=== PATIENT | male | born 1940 | race African-American/Black ===

== ENCOUNTER 2019-06-20 16:11 | Inpatient (IN) | payer OTHER ==
--- NOTE | 2019-06-20 16:22 | PDOC ---
Rapid Medical Evaluation Time Seen by Provider: 06/20/19 16:18 Medical Evaluation: Allergies Allergy/AdvReac Type Severity Reaction Status Date / Time No Known Allergies Allergy Verified 06/20/19 16:18 06/20/19 16:19 I have performed a brief in-person evaluation of this patient. The patient presents with a chief complaint of:L hip pain s/p trip and fall today. Unable to bear weight since fall. Did not hit head injury, LOC, MILLER, dizziness. No CP or dizziness prior to fall. On coumadin for DVT, HTN Pertinent physical exam findings:stable I have ordered the following:XR The patient will proceed to the ED for further evaluation. Discharge Disposition - Diagnosis Hip pain Qualifiers: Laterality: left Qualified Code(s): M25.552 - Pain in left hip - Referrals - Patient Instructions - Post Discharge Activity
--- NOTE | 2019-06-20 17:23 | PDOC ---
History of Present Illness <Laura Banks - Last Filed: 06/20/19 21:45> - General History Source: Patient Exam Limitations: No Limitations - History of Present Illness Initial Comments: 06/20/19 17:18 HISTORY OF PRESENT ILLNESS: This a 79-year-old male with past medical history of hypertension and A. fib on Coumadin who presents emergency department for evaluation of left thigh pain status post trip and fall. Patient reports was shopping and when he attempted to get back into his vehicle his shoe got caught on something causing him to lose his balance and fall. Patient reports he landed on his left leg where his while was in his front pocket pressing into his left eye. He denies any head trauma or loss of consciousness. Patient denies any dizziness or syncopal symptoms prior to fall. Patient has full recollection of events immediately prior to, during and after the incident. Patient had Tylenol in his car which he took prior to coming to the emergency department. Patient has not been ambulatory on his leg since the injury but has been able to stand. No recent travel or sick contacts. PAST MEDICAL HISTORY: see HPI SURGICAL HISTORY: Denies ALLERGIES: No known drug allergies REVIEW OF SYSTEMS General/Constitutional: Denies fever or chills. Denies weakness, weight change. HEENT: Denies change in vision. Denies ear pain or discharge. Denies sore throat. Cardiovascular: Denies chest pain or shortness of breath. Respiratory: Denies cough, wheezing, or hemoptysis. Gastrointestinal: Denies nausea, vomiting, diarrhea or constipation. Denies rectal bleeding. Genitourinary: Denies dysuria, frequency, or change in urination. Musculoskeletal: See HPI Skin and breasts: Denies rash or easy bruising. Neurologic: Denies headache, vertigo, loss of consciousness, or loss of sensation. Psychiatric: Denies depression or anxiety. Endocrine: Denies increased thirst. Denies abnormal weight change. Hematologic/Lymphatic: Denies anemia, easy bleeding, or history of blood clots. Allergic/Immunologic: Denies hives or skin allergy. Denies latex allergy. PHYSICAL EXAM General Appearance: Well-appearing, appropriately dressed. No apparent distress , no intoxication. HEENT: EOMI, PERRLA, normal ENT inspection, normal voice, TMs normal, pharynx normal. No conjunctival pallor. No photophobia, scleral icterus. Respiratory/Chest: Lungs CTAB. No shortness of breath, chest tenderness, respiratory distress, accessory muscle use. No crackles, rales, rhonchi, stridor , wheezing, dullness Cardiovascular: Irregular rhythym. S1, S2. No JVD, murmur, bradycardia, tachycardia. Vascular Pulses: Dorsalis-Pedis (R): 2+, Dorsalis-Pedis (L): 2+ Musculoskeletal/Extremities: Left thigh tender to palpation over the lateral aspect at the level of the mid femur. No bony tenderness, crepitus or step-off is present. Patient will full range of motion of hip and knee without difficulty. No ecchymosis or hematomas are present. NVI. Integumentary: Appropriate color, dry, warm. No cyanosis, erythema, jaundice or rash Neurologic: curator horticultural museum II-XII intact. Fully oriented, alert. Appropriate mood/affect. Motor strength 5/5. No appreciable EOM palsy, facial droop or sensory deficit. 06/21/19 11:12 <Xander Thornton - Last Filed: 06/21/19 11:13> - General Chief Complaint: Injury Stated Complaint: PAIN TO LT HIP Time Seen by Provider: 06/20/19 16:18 Past History <Laura Banks - Last Filed: 06/20/19 21:45> - Past Medical History COPD: No HTN: Yes - Immunization History Immunization Up to Date: Yes - Suicide/Smoking/Psychosocial Hx Smoking History: Never smoked Information on smoking cessation initiated: No Hx Alcohol Use: No Drug/Substance Use Hx: No <Xander Thornton - Last Filed: 06/21/19 11:13> - Past Medical History Allergies/Adverse Reactions: Allergies Allergy/AdvReac Type Severity Reaction Status Date / Time No Known Allergies Allergy Verified 06/20/19 21:22 Home Medications: Ambulatory Orders Amlodipine Besylate [Norvasc -] 5 mg PO DAILY 06/20/19 Warfarin Sodium [Coumadin] 5 mg PO HS 06/20/19 *Physical Exam - Vital Signs Last Vital Signs Temp Pulse Resp BP Pulse Ox 98.2 F 64 16 155/96 98 06/20/19 16:19 06/20/19 16:19 06/20/19 16:19 06/20/19 16:19 06/20/19 20:20 <Banks,Laura - Last Filed: 06/20/19 21:45> - Vital Signs Last Vital Signs Temp Pulse Resp BP Pulse Ox 98.2 F 64 16 155/96 98 06/20/19 16:19 06/20/19 16:19 06/20/19 16:19 06/20/19 16:19 06/20/19 16:19 <Xander Thornton - Last Filed: 06/21/19 11:13> Heart Score/ECG Review - ECG Intrepretation Rhythm: Irregularly Irregular - ECG Impressions Normal ECG: No Non-specific ST Elevation: No Ischemic Changes: No Comment:: 06/20/19 21:45 ATRIAL FIBRILLATION RATE OF 51 <Laura Banks - Last Filed: 06/20/19 21:45> ED Treatment Course - LABORATORY CBC & Chemistry Diagram: 06/20/19 20:35 06/20/19 20:35 - ADDITIONAL ORDERS Additional order review: Laboratory Results 06/20/19 06/20/19 06/20/19 20:35 20:35 20:35 PT with INR 28.10 H INR 2.36 H Sodium 141 Potassium 4.8 Chloride 108 H Carbon Dioxide 29 Anion Gap 4 L BUN 15.5 Creatinine 1.3 Est GFR (CKD-EPI)AfAm 60.57 Est GFR (CKD-EPI)NonAf 52.26 Random Glucose 82 Calcium 9.2 Total Bilirubin 2.2 H AST 38 H ALT 21 Alkaline Phosphatase 121 H Total Protein 7.9 Albumin 3.6 Blood Type O POSITIVE Antibody Screen Negative 06/20/19 20:35 RBC 4.32 MCV 103.0 H MCHC 32.3 RDW 16.8 H MPV 10.0 Neutrophils % 90.9 H Lymphocytes % 4.9 L Monocytes % 3.8 Eosinophils % 0.2 Basophils % 0.2 - Medications Given in the ED: ED Medications Discontinued Medications Generic Name Dose Route Start Last Admin Trade Name Freq PRN Reason Stop Dose Admin Oxycodone HCl 5 mg 06/20/19 17:44 06/20/19 17:52 Roxicodone - PO 06/20/19 17:45 5 mg ONCE ONE Administration <Laura Banks - Last Filed: 06/20/19 21:45> - LABORATORY CBC & Chemistry Diagram: 06/21/19 08:25 06/21/19 08:25 - RADIOLOGY Radiology Studies Ordered: Category Date Time Status FEMUR-LEFT [RAD] Stat Radiology 06/20/19 17:17 Ordered <Xander Thornton - Last Filed: 06/21/19 11:13> Medical Decision Making - Medical Decision Making 06/20/19 17:22 A/P: 79-year-old male with left eye pain status post trip and fall X-rays of the hip and pelvis performed in rapid medical evaluation as read by me : No acute fractures or dislocations present. Patient with tenderness to an area which is not visible on x-ray. X-ray of the left femur Reassess 06/20/19 17:48 X-ray of the left humerus read by me: No acute fractures are noted. No osseous lesions present. Discharge home I discussed the physical exam findings, ancillary test results and final diagnoses with the patient. I answered all of the patient's questions. The patient was satisfied with the care received and felt comfortable with the discharge plan and treatment plan. The patient will call their primary care physician within 24 hours to arrange follow-up and will return to the Emergency Department with any new, persistent or worsening symptoms. Portions of this note have been documented using voice recognition software. As a result, errors may occur in the truss driver helper process. Effort has been made to correct all grammatical and truss driver helper error, but some may have been missed. 06/20/19 18:53 Patient is unable to ambulate secondary to pain. I will get a CT of the left leg to rule out discrete fracture. 06/20/19 20:29 CT scan is read by Dr. Palmer: Nondisplaced acute cortical fracture is seen involving the left acetabulum ventrally. There is no CT evidence of the left femoral fracture. No definite left hip fracture is visualized. Dr. Baig's been paged to discuss the case. 06/20/19 20:45 Case is been discussed with Dr. Baig of orthopedics. He reports this patient is not a surgical candidate given nondisplaced fracture. Will be evaluated by the orthopedic team tomorrow with instructions to weight-bear as tolerated and for PT consult. 06/20/19 21:25 CAse d/w Dr. Gifford of hospitalist team who accepts patient for admission under Dr. Najera. <Xander Thornton - Last Filed: 06/21/19 11:13> *DC/Admit/Observation/Transfer <Laura Banks - Last Filed: 06/20/19 21:45> - Discharge Dispostion Decision to Admit order: Yes <Xander Thornton - Last Filed: 06/21/19 11:13> Diagnosis at time of Disposition: Left acetabular fracture Qualifiers: Encounter type: initial encounter Fracture type: closed Fracture alignment: nondisplaced - Discharge Dispostion Condition at time of disposition: Stable
[2019-06-20] MEDS ORDERED: oxyCODONE HCL 5 MG TABLET PO ONE (17:44)
[2019-06-20] MEDS ORDERED: oxyCODONE HCL 5 MG TABLET ONE (17:50)
[2019-06-20 20:52] LABS: BASO % 0.2 % (0-2.0); EOS % 0.2 % (0-4.5); HEMATOCRIT 44.5 % (35.4-49); HEMOGLOBIN 14.4 GM/dL (11.7-16.9); LYMPH % 4.9 % (8-40); MCH 33.2 pg (25.7-33.7); MCHC 32.3 g/dl (32.0-35.9); MONO % 3.8 % (3.8-10.2); NEUT % 90.9 % (42.8-82.8); PLATELET COUNT 172 K/MM3 (134-434); RBC 4.32 M/mm3 (4.00-5.60); RDW 16.8 % (11.9-15.9); WHITE BLOOD COUNT 10.8 K/mm3 (4.0-10.0)
[2019-06-20 21:18] LABS: INR 2.36 (0.83-1.09); PROTHROMBIN TIME (PATIENT) 28.1 SEC (9.7-13.0)
[2019-06-20 21:30] LABS: ALBUMIN 3.6 g/dl (3.4-5.0); BILIRUBIN,TOTAL 2.2 mg/dL (0.2-1); BLOOD UREA NITROGEN 15.5 mg/dL (7-18); CALCIUM 9.2 mg/dL (8.5-10.1); CREATININE 1.3 mg/dL (0.55-1.3); POTASSIUM 4.8 mmol/L (3.5-5.1); TOT PROT 7.9 g/dl (6.4-8.2)
--- NOTE | 2019-06-20 21:57 | PN ---
Teaching Attending Note Name of Resident: Mari Gifford ATTENDING PHYSICIAN STATEMENT I saw and evaluated the patient. I reviewed the resident's note and discussed the case with the resident. I agree with the resident's findings and plan as documented. SUBJECTIVE: Patient is a 79 year old man with PMH of Hypertension and A.fib on Coumadin who presents to the ER for evaluation of left thigh pain status post trip and fall. Patient reports was shopping and when he attempted to get back into his vehicle his shoe got caught on something causing him to lose his balance and fall. Patient reports he landed on his left leg where his while was in his front pocket pressing into his left eye. He denies any head trauma or loss of consciousness. Patient denies any dizziness or syncopal symptoms prior to fall. Patient has full recollection of events immediately prior to, during and after the incident. Has had recent cough with clear sputum. Patient had Tylenol in his car which he took prior to coming to the emergency department. Patient has not been ambulatory on his leg since the injury but has been able to stand. FH of unspecified cancer. OBJECTIVE: Alert Vital Signs Period Temp Pulse Resp BP Sys/Davalos Pulse Ox Last 24 Hr 98.2 F 64 16 155/96 98-98 HEENT: No Jaundice, eye redness or discharge, PERRLA, EOMI. Normocephalic, atraumatic. External ears are normal and hearing is grossly intact. No nasal discharge. Neck: Supple, nontender. No palpable adenopathy or thyromegaly. No JVD Chest: Good effort. Clear to auscultation and percussion. Heart: Irregularly irregular. No S3, rub or murmur Abdomen: Not distended, soft, nontender and no HSM. No rebound or guarding. Normal bowel sounds. Ext: Peripheral pulses intact. Leg edema. Tender left thigh. Skin: Warm and dry. No petechiae, rash or ecchymosis. Neuro: Alert. Oriented x3. CN 2-12 grossly intact. Sensation grossly intact in all four extremities and DTR are symmetric. Psych: Appropriate mood and affect. Good insight. Home Medications Medication Instructions Recorded Amlodipine Besylate [Norvasc -] 5 mg PO DAILY 06/20/19 Warfarin Sodium [Coumadin] 5 mg PO HS 06/20/19 Abnormal Lab Results 06/20/19 06/20/1919 20:35 20:35 20:35 WBC 10.8 H MCV 103.0 H RDW 16.8 H Absolute Neuts (auto) 9.8 H Neutrophils % 90.9 H Lymphocytes % 4.9 L PT with INR 28.10 H INR 2.36 H Chloride 108 H Anion Gap 4 L Total Bilirubin 2.2 H AST 38 H Alkaline Phosphatase 121 H ASSESSMENT AND PLAN: 1. Fall with left Acetabular fracture - CT scan showed a nondisplaced cortical fracture of left acetabulum ventrally. Fall appears to be mechanical. Etiology of elevated LFTs is unclear. Will get upper abdominal sonogram, hepatitis serology, urine toxicology and trend LFTs. Leukocytosis may be stress related, but will get urinalysis. CXR shows cardiomegaly with no acute infiltrates. EKG shows afib with rate of [address]-T wave changes. Will get ECHO in view of leg edema. Continue coumadin for afib. 2. Hypertension - Restart suitable outpatient antihypertensive drugs when clinically appropriate. 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 Nonpharmacologic measures to control hypertension like weight loss , salt restriction and exercise discussed. Importance of adherence to treatment regimen and attainment of normotension emphasized. 3. DVT prophylaxis - On coumadin 4. Advance directives - Full code
--- NOTE | 2019-06-20 22:22 | HP ---
CHIEF COMPLAINT:fall PCP:dr barrett HISTORY OF PRESENT ILLNESS: 79 y/o male with PMH of afib on coumadin, HTN presents to the ED after a mechanical fall- patient states the he was getting into his car when his foot got caught and he ended up on the ground. he denies any headaches/dizziness or chest pain leading up to the event, this has never happened to him before, he is not someone that has frequent falls, nor does he use anything to get around. he is also endorsing that he has been having a productive cough with white- yellow sputum for the last 3-4 days, however denies any fevers/chills/ or sick contacts, nor any recent travel. ER course was notable for: (1) vitals wnl (2)wbc 10.8; Cr 1.3, T miguel 2.2, AST 38 (3)lower extremity CT showing left acetbaular fx; hip.pelvs xray showing no fx (4) given oxy 5mg x1 Recent Travel: denies PAST MEDICAL HISTORY: see above PAST SURGICAL HISTORY: denies Social History: Smoking: ocasional smoker; smokes 1 cigarette per month Alcohol:denies Drugs: denies Family History: unknown cancers on fathers side Allergies No Known Allergies Allergy (Verified 06/20/19 21:22) HOME MEDICATIONS: Home Medications Medication Instructions Recorded Amlodipine Besylate [Norvasc -] 5 mg PO DAILY 06/20/19 Warfarin Sodium [Coumadin] 5 mg PO HS 06/20/19 REVIEW OF SYSTEMS CONSTITUTIONAL: Absent: fever, chills, diaphoresis, generalized weakness, malaise, loss of appetite, weight change HEENT: Absent: rhinorrhea, nasal congestion, throat pain, throat swelling, difficulty swallowing, mouth swelling, ear pain, eye pain, visual changes CARDIOVASCULAR: Absent: chest pain, syncope, palpitations, irregular heart rate, lightheadedness , peripheral edema RESPIRATORY: Absent: cough, shortness of breath, dyspnea with exertion, orthopnea, wheezing, stridor, hemoptysis GASTROINTESTINAL: Absent: abdominal pain, abdominal distension, nausea, vomiting, diarrhea, constipation, melena, hematochezia GENITOURINARY: Absent: dysuria, frequency, urgency, hesitancy, hematuria, flank pain, genital pain MUSCULOSKELETAL: Present: myalgia Absent: arthralgia, joint swelling, back pain, neck pain SKIN: Absent: rash, itching, pallor HEMATOLOGIC/IMMUNOLOGIC: Absent: easy bleeding, easy bruising, lymphadenopathy, frequent infections ENDOCRINE: Absent: unexplained weight gain, unexplained weight loss, heat intolerance, cold intolerance NEUROLOGIC: Absent: headache, focal weakness or paresthesias, dizziness, unsteady gait, seizure, mental status changes, bladder or bowel incontinence PSYCHIATRIC: Absent: anxiety, depression, suicidal or homicidal ideation, hallucinations. PHYSICAL EXAMINATION Vital Signs - 24 hr 06/20/19 06/20/19 06/20/19 16:19 20:20 21:42 Temperature 98.2 F Pulse Rate 64 Pulse Rate [ 58 L Left Radial] Respiratory 16 26 H Rate Blood Pressure 155/96 Blood Pressure 167/80 [Right Arm] O2 Sat by Pulse 98 98 99 Oximetry (%) GENERAL: Awake, alert, and fully oriented, in no acute distress. EYES: PEERLA; EOMI; no scleral icterus NECK: no JVD; no lymphadenopathy. LUNGS:coarse breath sounds B/L; HEART: Regular rate and rhythm, normal S1 and S2 without murmur, rub or gallop. ABDOMEN: soft; NT/ND +BS in all 4 quadrants MUSCULOSKELETAL: Normal range of motion at all joints. No bony deformities or tenderness. No CVA tenderness. EXTREMITIES: slightly cool extremities B/L; 2+ pitting edema B/L; left thigh tenderness upon palpation NEUROLOGICAL: Cranial nerves II-XII intact. Normal speech. upper extremities strength 5/5 BL;RLE 5/5 ; LLE 3-4/5 sensation intact throughout SKIN: Warm, dry, normal turgor, no rashes or lesions noted, normal capillary refill. Laboratory Results - last 24 hr 06/20/19 06/20/19 06/20/19 20:35 20:35 20:35 WBC 10.8 H RBC 4.32 Hgb 14.4 Hct 44.5 MCV 103.0 H MCH 33.2 MCHC 32.3 RDW 16.8 H Plt Count 172 MPV 10.0 Absolute Neuts (auto) 9.8 H Neutrophils % 90.9 H Lymphocytes % 4.9 L Monocytes % 3.8 Eosinophils % 0.2 Basophils % 0.2 Nucleated RBC % 0 PT with INR 28.10 H INR 2.36 H Sodium 141 Potassium 4.8 Chloride 108 H Carbon Dioxide 29 Anion Gap 4 L BUN 15.5 Creatinine 1.3 Est GFR (CKD-EPI)AfAm 60.57 Est GFR (CKD-EPI)NonAf 52.26 Random Glucose 82 Calcium 9.2 Total Bilirubin 2.2 H AST 38 H ALT 21 Alkaline Phosphatase 121 H Total Protein 7.9 Albumin 3.6 Blood Type Antibody Screen 06/20/19 20:35 WBC RBC Hgb Hct MCV MCH MCHC RDW Plt Count MPV Absolute Neuts (auto) Neutrophils % Lymphocytes % Monocytes % Eosinophils % Basophils % Nucleated RBC % PT with INR INR Sodium Potassium Chloride Carbon Dioxide Anion Gap BUN Creatinine Est GFR (CKD-EPI)AfAm Est GFR (CKD-EPI)NonAf Random Glucose Calcium Total Bilirubin AST ALT Alkaline Phosphatase Total Protein Albumin Blood Type O POSITIVE Antibody Screen Negative ASSESSMENT/PLAN: 79 y/o male with PMH of afib on coumadin, HTN presents to the ED after a mechanical fall found to have an acute left acetabular fracture #S/P Mechanical Fall patient found to have left acetbaular fracture on CT -ortho consulted; will see patient in AM however not a surgical candidate -PT -tylneol PRN for pain control #Leukocytosis unclear source, likely reactive -UA and culture pending -CXR done and final read pending #Hyperbilirubinemia patient found to have a T miguel 2.2 with an AST of 38 -RUQ U/S pending -Hepatitis panel pending #HTN will c/w amlodipine 5mg #Afib will c/w coumadin -PT/INR in AM F/E/N not on fluids monitor electrolytes sodium controlled diet dvt ppx: coumadin Problem List - Problem (1) Afib Code(s): I48.91 - UNSPECIFIED ATRIAL FIBRILLATION (2) Left acetabular fracture Code(s): S32.402A - UNSP FRACTURE OF LEFT ACETABULUM, INIT FOR CLOS FX Qualifiers: Encounter type: initial encounter Fracture type: closed Fracture alignment: nondisplaced Visit type - Emergency Visit Emergency Visit: Yes ED Registration Date: 06/20/19 Care time: The patient presented to the Emergency Department on the above date and was hospitalized for further evaluation of their emergent condition. - New Patient This patient is new to me today: Yes Date on this admission: 06/20/19 - Critical Care Critical Care patient: No ATTENDING PHYSICIAN STATEMENT I saw and evaluated the patient. I reviewed the resident's note and discussed the case with the resident. I agree with the resident's findings and plan as documented. SUBJECTIVE: OBJECTIVE: ASSESSMENT AND PLAN:
[2019-06-21 00:22] LABS: EPI CELLS 0.1 /HPF (0-5/HPF); HYALINE CASTS 0 /lpf (0-8); URINE APPEARANCE CLOUDY; URINE BACTERIA 0.5 /hpf (NEGATIVE); URINE BILIRUBIN NEGATIVE (NEGATIVE); URINE COLOR YELLOW; URINE GLUCOSE (UA) NEGATIVE (NEGATIVE); URINE KETONE NEGATIVE (NEGATIVE); URINE LEUK ESTERASE NEGATIVE (NEGATIVE); URINE NITRITE NEGATIVE (NEGATIVE); URINE PROTEIN NEGATIVE (NEGATIVE); URINE RBC 23 /hpf (0-4); URINE WBC 0 /hpf (0-5)
[2019-06-21 00:34] LABS: COCAINE, UR NEGATIVE ng/ml (CUTOFF=300); METHADONE, UR NEGATIVE ng/ml (CUTOFF=300); OPIATES, URI NEGATIVE ng/ml (CUTOFF=300); PHENCYCLIDINE,URINE NEGATIVE ng/ml (CUTOFF=25); URINE AMPHETAMINES NEGATIVE ng/ml (CUTOFF=500); URINE BARBITURATES NEGATIVE ng/ml (CUTOFF=200); URINE BENZODIAZEPINES NEGATIVE ng/ml (CUTOFF=200)
[2019-06-21 02:51] VITALS: BMI 22.8
[2019-06-21 09:21] LABS: BASO % 0.3 % (0-2.0); EOS % 0.1 % (0-4.5); HEMATOCRIT 40.1 % (35.4-49); HEMOGLOBIN 13.3 GM/dL (11.7-16.9); LYMPH % 4.8 % (8-40); MCH 33.7 pg (25.7-33.7); MCHC 33.2 g/dl (32.0-35.9); MEAN CELL VOLUME 101.6 fl (80-96); MEAN PLT VOLUME 9.4 fl (7.5-11.1); NEUT % 91.8 % (42.8-82.8); PLATELET COUNT 152 K/MM3 (134-434); RBC 3.95 M/mm3 (4.00-5.60); RDW 16.5 % (11.9-15.9); WHITE BLOOD COUNT 10.3 K/mm3 (4.0-10.0)
--- NOTE | 2019-06-21 09:34 | PN ---
Progress Note (short form) - Note Progress Note: Pt seen and examined. He is a 79 year old male patient 1 day s/p mechanical fall , with c/o pain at his left thigh and pelvis/hip/ PE LLE is NVI Good ROM at the left knee, ankle, foot, toes Limited ROM at the left hip bc of pain ` LLE not shortened or externally rotated + pain with pressure over the left hemipelvis No pain to palpation over the left hip, femur, or knee Xrays and CT scan Show an acute left, non displaced acetabular fracture. Imp As above, acetabular fracture Rec No surgery needed P.T., WBAT with walker and assistance If cannot Dc home, then will need short term rehab placement
[2019-06-21] MEDS: amLODIPine BESYLATE 5 MG TABLET (FP) PO SCH (09:47)
[2019-06-21 10:00] LABS: ALBUMIN 3.2 g/dl (3.4-5.0); BLOOD UREA NITROGEN 14.2 mg/dL (7-18); CALCIUM 8.8 mg/dL (8.5-10.1); CREATININE 1.1 mg/dL (0.55-1.3); MAGNESIUM 1.7 mg/dL (1.8-2.4); POTASSIUM 3.5 mmol/L (3.5-5.1); TOT PROT 6.8 g/dl (6.4-8.2)
[2019-06-21 10:22] LABS: INR 2.55 (0.83-1.09); PROTHROMBIN TIME (PATIENT) 30.4 SEC (9.7-13.0)
[2019-06-21 10:25] LABS: ACTIVATED PTT 40.4 SECONDS (25.2-36.5)
--- NOTE | 2019-06-21 11:29 | EKG ---
Test Reason : Blood Pressure : / mmHG Vent. Rate : 051 BPM Atrial Rate : 326 BPM P-R Int : 000 ms QRS Dur : 088 ms QT Int : 448 ms P-R-T Axes : 000 -36 043 degrees QTc Int : 412 ms ATRIAL FIBRILLATION WITH SLOW VENTRICULAR RESPONSE LEFT AXIS DEVIATION SEPTAL INFARCT , AGE UNDETERMINED ABNORMAL ECG NO PREVIOUS ECGS AVAILABLE Confirmed by UNRULY BLAIR MD ([id number]) on 06/21/2019 11:29:25 AM Referred By: Confirmed By:UNRULY BLAIR MD
[2019-06-21] MEDS ORDERED: MAGNESIUM SULF 50% (8.12 MEQ/2 ML-1 GM VIAL) IVPB ONE (16:23)
--- NOTE | 2019-06-21 16:27 | PN ---
Progress Note (short form) - Note Progress Note: Patient is feeling better with no acute distress, no nausea or vomiting c/o having left lower extremity pain when he moves. Vital Signs Temperature 99.8 F H 06/21/19 14:34 Pulse Rate 54 L 06/21/19 14:34 Respiratory Rate 20 06/21/19 10:00 Blood Pressure 141/90 06/21/19 14:34 O2 Sat by Pulse Oximetry (%) 99 06/20/19 21:42 GENERAL: Awake, alert, and fully oriented, in no acute distress. EYES: PEERLA; EOMI; no scleral icterus ,NECK: no JVD; no lymphadenopathy. LUNGS:coarse breath sounds B/L; HEART: Regular rate and rhythm, normal S1 and S2 without murmur, rub or gallop. ABDOMEN: soft; NT/ND +BS in all 4 quadrants MUSCULOSKELETAL: Normal range of motion at all joints. No bony deformities or tenderness. No CVA tenderness. EXTREMITIES: slightly cool extremities B/L; 2+ pitting edema B/L; left thigh tenderness upon palpation NEUROLOGICAL: Cranial nerves II-XII intact. Normal speech. Extremities: pulse are positive, left ankle mild pain. SKIN: Warm, dry, normal turgor, no rashes or lesions noted, normal capillary refill. CBCD WBC 10.3 K/mm3 (4.0-10.0) H 06/21/19 08:25 RBC 3.95 M/mm3 (4.00-5.60) L 06/21/19 08:25 Hgb 13.3 GM/dL (11.7-16.9) 06/21/19 08:25 Hct 40.1 % (35.4-49) 06/21/19 08:25 MCV 101.6 fl (80-96) H 06/21/19 08:25 MCHC 33.2 g/dl (32.0-35.9) 06/21/19 08:25 RDW 16.5 % (11.9-15.9) H 06/21/19 08:25 Plt Count 152 K/MM3 (134-434) 06/21/19 08:25 MPV 9.4 fl (7.5-11.1) 06/21/19 08:25 CMP Sodium 140 mmol/L (136-145) 06/21/19 08:25 Potassium 3.5 mmol/L (3.5-5.1) 06/21/19 08:25 Chloride 106 mmol/L (98-107) 06/21/19 08:25 Carbon Dioxide 25 mmol/L (21-32) 06/21/19 08:25 Anion Gap 9 MMOL/L (8-16) 06/21/19 08:25 BUN 14.2 mg/dL (7-18) 06/21/19 08:25 Creatinine 1.1 mg/dL (0.55-1.3) 06/21/19 08:25 Random Glucose 121 mg/dL (74-106) H 06/21/19 08:25 Calcium 8.8 mg/dL (8.5-10.1) 06/21/19 08:25 Total Bilirubin 3.0 mg/dL (0.2-1) H 06/21/19 08:25 AST 23 U/L (15-37) 06/21/19 08:25 ALT 17 U/L (13-61) 06/21/19 08:25 Alkaline Phosphatase 112 U/L (45-117) 06/21/19 08:25 Total Protein 6.8 g/dl (6.4-8.2) 06/21/19 08:25 Albumin 3.2 g/dl (3.4-5.0) L 06/21/19 08:25 Current Medications Generic Name Dose Route Start Last Admin Trade Name Freq PRN Reason Stop Dose Admin Amlodipine Besylate 5 mg 06/21/19 10:00 06/21/19 09:47 Norvasc - PO 5 mg DAILY [facility] Administration Magnesium Sulfate 1 gm 06/21/19 16:23 Magnesium Sulfate IVPB 06/21/19 16:24 ONCE ONE Oxycodone HCl 5 mg 06/21/19 16:22 Roxicodone - PO Q6H PRN PAIN LEVEL 6-10 Warfarin Sodium 5 mg 06/21/19 18:00 Coumadin - PO DAILY@1800 [facility] Home Medications Medication Instructions Recorded Amlodipine Besylate [Norvasc -] 5 mg PO DAILY 06/20/19 Warfarin Sodium [Coumadin] 5 mg PO HS 06/20/19 CT scan: acute left, non displaced acetabular fracture. A/p: Patient is a 79yo male with PMHx of afib on coumadin, HTN presents to the ED after a mechanical fall- patient states the he was getting into his car when his foot got caught and he ended up on the ground. #Acute acetabular fracture: as per ortho, no surgery needed as per ortho, patient is unable to ambulate will arrange short term rehab. P.T.: WBAT with walker and assistance. pain control on oxycodone prn #Afib on coumadin 5mg daily , PT/INR daily #S/P Mechanical Fall was found to have left acetbaular fracture on CT #Leukocytosis improving follow UA and culture pending. #Hyperbilirubinemia: isolated miguel 2.2 with normal LFts ; US of abdomen: mild cbd 0.7mm, cholelithiasis no chelecystitis Hepatitis panel pending #HTN: continue home amlodipine 5mg DVT Px: Coumadin Visit type - Emergency Visit Emergency Visit: Yes ED Registration Date: 06/20/19 Care time: The patient presented to the Emergency Department on the above date and was hospitalized for further evaluation of their emergent condition. - New Patient This patient is new to me today: Yes Date on this admission: 06/21/19 - Critical Care Critical Care patient: No - Discharge Referral Referred to [facility] Med P.C.: No
[2019-06-21] MEDS: WARFARIN NA 5 MG TABLET (UD) PO SCH (17:31)
[2019-06-21] MEDS: oxyCODONE HCL 5 MG TABLET PO PRN (17:32)
[2019-06-21 18:02] LABS: ANISOCYTOSIS 1+; MACROCYTOSIS 1+; PLATELET ESTIMATE ADEQUATE
[2019-06-22 08:31] LABS: BASO % 0.3 % (0-2.0); HEMOGLOBIN 14.5 GM/dL (11.7-16.9); MEAN PLT VOLUME 9.1 fl (7.5-11.1); WHITE BLOOD COUNT 8.4 K/mm3 (4.0-10.0)
--- NOTE | 2019-06-22 08:35 | PN ---
Physical Exam: SUBJECTIVE: Patient seen and examined at bedside- no acute events overnight patient required oxycodone x1 overnight however he states his pain is better- he walked with PT yesterday however he states he didn't feel great doing it; he denies any CP/SOB/N/V OBJECTIVE: Vital Signs Period Temp Pulse Resp BP Sys/Davalos Pulse Ox Last 24 Hr 98.3 F-99.8 F 45-54 16-20 131-157/63-90 97 GENERAL: The patient is awake, alert, and fully oriented, in no acute distress. EYES:PEELRA; EOMI; no scleral icterus NECK: no JVD; no lymphadenopathy LUNGS: CTA B/L; no rales, rhonchi or wheezing HEART: Regular rate and rhythm, S1, S2 without murmur, rub or gallop. ABDOMEN: Soft, NT/ND +BS in all 4 quadrants EXTREMITIES: 2+ pulses, warm, well-perfused, 2+ edema B/L . PSYCH: Normal mood, normal affect. SKIN: Warm, dry, normal turgor, no rashes or lesions noted Laboratory Results - last 24 hr 06/21/19 06/21/19 06/21/19 08:25 08:25 08:25 WBC 10.3 H RBC 3.95 L Hgb 13.3 Hct 40.1 MCV 101.6 H MCH 33.7 MCHC 33.2 RDW 16.5 H Plt Count 152 MPV 9.4 Absolute Neuts (auto) 9.5 H Neutrophils % 91.8 H Neutrophils % (Manual) 90.0 H Band Neutrophils % 1.0 Lymphocytes % 4.8 L Lymphocytes % (Manual) 5.0 L Monocytes % 3.0 L Monocytes % (Manual) 4 Eosinophils % 0.1 Basophils % 0.3 Nucleated RBC % 0 Hypochromia 1+ Platelet Estimate Adequate Anisocytosis 1+ Macrocytosis 1+ PT with INR 30.40 H INR 2.55 H PTT (Actin FS) 40.4 H Sodium 140 Potassium 3.5 Chloride 106 Carbon Dioxide 25 Anion Gap 9 BUN 14.2 Creatinine 1.1 Est GFR (CKD-EPI)AfAm 74.13 Est GFR (CKD-EPI)NonAf 63.96 Random Glucose 121 H Calcium 8.8 Magnesium 1.7 L Total Bilirubin 3.0 H AST 23 ALT 17 Alkaline Phosphatase 112 Total Protein 6.8 Albumin 3.2 L Active Medications Generic Name Dose Route Start Last Admin Trade Name Freq PRN Reason Stop Dose Admin Amlodipine Besylate 5 mg 06/21/19 10:00 06/21/19 09:47 Norvasc - PO 5 mg DAILY [facility] Administration Oxycodone HCl 5 mg 06/21/19 16:22 06/21/19 17:32 Roxicodone - PO 5 mg Q6H PRN Administration PAIN LEVEL 6-10 Warfarin Sodium 5 mg 06/21/19 18:00 06/21/19 17:31 Coumadin - PO 5 mg DAILY@1800 [facility] Administration ASSESSMENT/PLAN: 79 y/o male with PMH of afib on coumadin, HTN presents to the ED after a mechanical fall found to have an acute left acetabular fracture #S/P Mechanical Fall patient found to have left acetbaular fracture on CT -ortho consulted and saw patient yesterday; patient is not a surgical candidate -PT -OXY PRN for pain control -will need SNF #Leukocytosis resolved #Hyperbilirubinemia patient found to have a T miguel 2.8 with an AST of 23 -RUQ U/S shows cholethiasis with mild CBD dilation (0.7cm) -Hepatitis panel pending #HTN will c/w amlodipine 5mg #Afib will c/w coumadin -PT/INR in AM F/E/N not on fluids monitor electrolytes sodium controlled diet dvt ppx: coumadin Problem List - Problems (1) Afib Code(s): I48.91 - UNSPECIFIED ATRIAL FIBRILLATION (2) Left acetabular fracture Code(s): S32.402A - UNSP FRACTURE OF LEFT ACETABULUM, INIT FOR CLOS FX Qualifiers: Encounter type: initial encounter Fracture type: closed Fracture alignment: nondisplaced Visit type - Emergency Visit Emergency Visit: Yes ED Registration Date: 06/20/19 Care time: The patient presented to the Emergency Department on the above date and was hospitalized for further evaluation of their emergent condition. - New Patient This patient is new to me today: No - Critical Care Critical Care patient: No ATTENDING PHYSICIAN STATEMENT I saw and evaluated the patient. I reviewed the resident's note and discussed the case with the resident. I agree with the resident's findings and plan as documented. SUBJECTIVE: OBJECTIVE: ASSESSMENT AND PLAN:
[2019-06-22 08:45] LABS: INR 2.3 (0.83-1.09); PROTHROMBIN TIME (PATIENT) 27.4 SEC (9.7-13.0)
[2019-06-22 08:55] LABS: ALBUMIN 3.2 g/dl (3.4-5.0); BILIRUBIN,TOTAL 2.8 mg/dL (0.2-1); BLOOD UREA NITROGEN 16.1 mg/dL (7-18); CALCIUM 8.7 mg/dL (8.5-10.1); CREATININE 1.2 mg/dL (0.55-1.3); PHOSPHOROUS 2.4 mg/dL (2.5-4.9); POTASSIUM 3.5 mmol/L (3.5-5.1); TOT PROT 7.2 g/dl (6.4-8.2)
[2019-06-22 09:12] LABS: EOS % 0.1 % (0-4.5); HEMATOCRIT 43.4 % (35.4-49); LYMPH % 6.8 % (8-40); MCH 33.8 pg (25.7-33.7); MCHC 33.3 g/dl (32.0-35.9); MEAN CELL VOLUME 101.4 fl (80-96); MONO % 4.4 % (3.8-10.2); NEUT % 88.4 % (42.8-82.8); PLATELET COUNT 154 K/MM3 (134-434); RBC 4.28 M/mm3 (4.00-5.60); RDW 16.8 % (11.9-15.9)
[2019-06-22] MEDS: amLODIPine BESYLATE 5 MG TABLET (FP) PO SCH (10:17)
--- NOTE | 2019-06-22 16:10 | PN ---
Teaching Attending Note Name of Resident: Mari Gifford ATTENDING PHYSICIAN STATEMENT I saw and evaluated the patient. I reviewed the resident's note and discussed the case with the resident. I agree with the resident's findings and plan as documented. SUBJECTIVE: Patient is feeling better but continues to have pain. OBJECTIVE: Vital Signs Temperature 99.1 F 06/22/19 06:06 Pulse Rate 53 L 06/22/19 10:00 Respiratory Rate 18 06/22/19 10:00 Blood Pressure 124/70 06/22/19 10:00 O2 Sat by Pulse Oximetry (%) 97 06/21/19 21:00 GENERAL: Awake, alert, and fully oriented, in no acute distress. EYES: PEERLA; EOMI; no scleral icterus, NECK: no JVD; no lymphadenopathy. LUNGS:coarse breath sounds B/L; HEART: Regular rate and rhythm, normal S1 and S2 without murmur, rub or gallop. ABDOMEN: soft; NT/ND +BS in all 4 quadrants MUSCULOSKELETAL: Normal range of motion at all joints. No bony deformities or tenderness. No CVA tenderness. EXTREMITIES: slightly cool extremities B/L; 2+ pitting edema B/L; left thigh tenderness upon palpation NEUROLOGICAL: Cranial nerves II-XII intact. Normal speech. Extremities: pulse are positive, left ankle mild pain. SKIN: Warm, dry, normal turgor, no rashes or lesions noted, normal capillary refill. CBCD WBC 8.4 K/mm3 (4.0-10.0) 06/22/19 07:50 RBC 4.28 M/mm3 (4.00-5.60) 06/22/19 07:50 Hgb 14.5 GM/dL (11.7-16.9) 06/22/19 07:50 Hct 43.4 % (35.4-49) 06/22/19 07:50 MCV 101.4 fl (80-96) H 06/22/19 07:50 MCHC 33.3 g/dl (32.0-35.9) 06/22/19 07:50 RDW 16.8 % (11.9-15.9) H 06/22/19 07:50 Plt Count 154 K/MM3 (134-434) 06/22/19 07:50 MPV 9.1 fl (7.5-11.1) 06/22/19 07:50 CMP Sodium 140 mmol/L (136-145) 06/22/19 07:50 Potassium 3.5 mmol/L (3.5-5.1) 06/22/19 07:50 Chloride 104 mmol/L (98-107) 06/22/19 07:50 Carbon Dioxide 28 mmol/L (21-32) 06/22/19 07:50 Anion Gap 8 MMOL/L (8-16) 06/22/19 07:50 BUN 16.1 mg/dL (7-18) 06/22/19 07:50 Creatinine 1.2 mg/dL (0.55-1.3) 06/22/19 07:50 Random Glucose 96 mg/dL (74-106) 06/22/19 07:50 Calcium 8.7 mg/dL (8.5-10.1) 06/22/19 07:50 Total Bilirubin 2.8 mg/dL (0.2-1) H 06/22/19 07:50 AST 23 U/L (15-37) 06/22/19 07:50 ALT 17 U/L (13-61) 06/22/19 07:50 Alkaline Phosphatase 114 U/L (45-117) 06/22/19 07:50 Total Protein 7.2 g/dl (6.4-8.2) 06/22/19 07:50 Albumin 3.2 g/dl (3.4-5.0) L 06/22/19 07:50 Current Medications Generic Name Dose Route Start Last Admin Trade Name Slickq PRN Reason Stop Dose Admin Amlodipine Besylate 5 mg 06/21/19 10:00 06/22/19 10:17 Norvasc - PO 5 mg DAILY [facility] Administration Oxycodone HCl 5 mg 06/21/19 16:22 06/21/19 17:32 Roxicodone - PO 5 mg Q6H PRN Administration PAIN LEVEL 6-10 Warfarin Sodium 5 mg 06/21/19 18:00 06/21/19 17:31 Coumadin - PO 5 mg DAILY@1800 [facility] Administration Home Medications Medication Instructions Recorded Amlodipine Besylate [Norvasc -] 5 mg PO DAILY 06/20/19 Warfarin Sodium [Coumadin] 5 mg PO HS 06/20/19 Laboratory Tests 06/20/19 06/21/19 06/22/19 20:35 08:25 07:50 INR 2.36 H 2.55 H 2.30 H Microbiology 06/21/19 00:05 Urine - Urine Clean Catch Urine Culture - Final NO GROWTH OBTAINED CT scan: acute left, non displaced acetabular fracture. Laboratory Tests 06/20/19 06/21/19 06/21/19 20:35 08:25 08:25 INR 2.36 H 2.55 H Hep A IgM Ab Confirm Pending Hepatitis A Ab Total Pending Hep Bs Antigen Pending Hep Bs Antibody Pending Hep B Core Total Ab Pending Hep B Core IgM Ab Pending Hepatitis Be Antibody Pending Hepatitis Be Antigen Pending 06/22/19 07:50 INR 2.30 H Hep A IgM Ab Confirm Hepatitis A Ab Total Hep Bs Antigen Hep Bs Antibody Hep B Core Total Ab Hep B Core IgM Ab Hepatitis Be Antibody Hepatitis Be Antigen ASSESSMENT AND PLAN: Patient is a 79yo male with PMHx of afib on coumadin, HTN presents to the ED after a mechanical fall- patient states the he was getting into his car when his foot got caught and he ended up on the ground. #Acute acetabular fracture: as per ortho, no surgery needed as per ortho, patient is unable to ambulate will arrange short term rehab. P.T.: WBAT with walker and assistance. pain control on oxycodone prn #Afib on coumadin 5mg daily , PT/INR daily #S/P Mechanical Fall was found to have left acetbaular fracture on CT #Leukocytosis improved, UA is no growth so far. #Hyperbilirubinemia: isolated miguel 2.2-->2.8 with normal LFts ; US of abdomen : mild CBD 0.7mm, cholelithiasis no chelecystitis, Hepatitis panel pending #HTN: continue home amlodipine 5mg DVT Px: Coumadin
[2019-06-22] MEDS: WARFARIN NA 5 MG TABLET (UD) PO SCH (17:14)
[2019-06-23 06:47] LABS: HEMATOCRIT 37.4 % (35.4-49); HEMOGLOBIN 12.5 GM/dL (11.7-16.9); MCH 33.6 pg (25.7-33.7); MCHC 33.5 g/dl (32.0-35.9); MEAN CELL VOLUME 100.4 fl (80-96); MEAN PLT VOLUME 9.3 fl (7.5-11.1); PLATELET COUNT 140 K/MM3 (134-434); RBC 3.72 M/mm3 (4.00-5.60); RDW 16.5 % (11.9-15.9); WHITE BLOOD COUNT 6.5 K/mm3 (4.0-10.0)
[2019-06-23 07:25] LABS: ALBUMIN 2.7 g/dl (3.4-5.0); BILIRUBIN,TOTAL 1.7 mg/dL (0.2-1); BLOOD UREA NITROGEN 20.4 mg/dL (7-18); CALCIUM 8.4 mg/dL (8.5-10.1); CREATININE 1.2 mg/dL (0.55-1.3); MAGNESIUM 2.1 mg/dL (1.8-2.4); POTASSIUM 3.8 mmol/L (3.5-5.1); TOT PROT 6.2 g/dl (6.4-8.2)
[2019-06-23] MEDS: amLODIPine BESYLATE 5 MG TABLET (FP) PO SCH (10:03)
--- NOTE | 2019-06-23 14:11 | PN ---
Progress Note (short form) - Note Progress Note: Patient is better but continues to have pain on ambulation. Vital Signs Temperature 98.3 F 06/23/19 13:57 Pulse Rate 52 L 06/23/19 13:57 Respiratory Rate 18 06/23/19 13:57 Blood Pressure 121/66 06/23/19 13:57 O2 Sat by Pulse Oximetry (%) 98 06/22/19 21:00 GENERAL: Awake, alert, and fully oriented, in no acute distress. EYES: PEERLA; EOMI; no scleral icterus, NECK: no JVD; no lymphadenopathy. LUNGS:coarse breath sounds B/L; HEART: Regular rate and rhythm, normal S1 and S2 without murmur, rub or gallop. ABDOMEN: soft; NT/ND +BS in all 4 quadrants MUSCULOSKELETAL: Normal range of motion at all joints. No bony deformities or tenderness. No CVA tenderness. EXTREMITIES: pulses are positve ; trace edema B/L; left thigh tenderness upon palpation NEUROLOGICAL: Cranial nerves II-XII intact. Normal speech. Extremities: pulse are positive, left ankle mild pain. SKIN: Warm, dry, normal turgor, no rashes or lesions noted, normal capillary refill. CBCD WBC 6.5 K/mm3 (4.0-10.0) 06/23/19 06:30 RBC 3.72 M/mm3 (4.00-5.60) L 06/23/19 06:30 Hgb 12.5 GM/dL (11.7-16.9) 06/23/19 06:30 Hct 37.4 % (35.4-49) 06/23/19 06:30 MCV 100.4 fl (80-96) H 06/23/19 06:30 MCHC 33.5 g/dl (32.0-35.9) 06/23/19 06:30 RDW 16.5 % (11.9-15.9) H 06/23/19 06:30 Plt Count 140 K/MM3 (134-434) 06/23/19 06:30 MPV 9.3 fl (7.5-11.1) 06/23/19 06:30 CMP Sodium 141 mmol/L (136-145) 06/23/19 06:30 Potassium 3.8 mmol/L (3.5-5.1) 06/23/19 06:30 Chloride 108 mmol/L (98-107) H 06/23/19 06:30 Carbon Dioxide 27 mmol/L (21-32) 06/23/19 06:30 Anion Gap 6 MMOL/L (8-16) L 06/23/19 06:30 BUN 20.4 mg/dL (7-18) H 06/23/19 06:30 Creatinine 1.2 mg/dL (0.55-1.3) 06/23/19 06:30 Random Glucose 96 mg/dL (74-106) 06/23/19 06:30 Calcium 8.4 mg/dL (8.5-10.1) L 06/23/19 06:30 Total Bilirubin 1.7 mg/dL (0.2-1) H 06/23/19 06:30 AST 15 U/L (15-37) 06/23/19 06:30 ALT 12 U/L (13-61) L 06/23/19 06:30 Alkaline Phosphatase 90 U/L (45-117) 06/23/19 06:30 Total Protein 6.2 g/dl (6.4-8.2) L 06/23/19 06:30 Albumin 2.7 g/dl (3.4-5.0) L 06/23/19 06:30 Current Medications Generic Name Dose Route Start Last Admin Trade Name Freq PRN Reason Stop Dose Admin Amlodipine Besylate 5 mg 06/21/19 10:00 06/23/19 10:03 Norvasc - PO 5 mg DAILY [facility] Administration Oxycodone HCl 5 mg 06/21/19 16:22 06/21/19 17:32 Roxicodone - PO 5 mg Q6H PRN Administration PAIN LEVEL 6-10 Warfarin Sodium 5 mg 06/21/19 18:00 06/22/19 17:14 Coumadin - PO 5 mg DAILY@1800 [facility] Administration Home Medications Medication Instructions Recorded Amlodipine Besylate [Norvasc -] 5 mg PO DAILY 06/20/19 Warfarin Sodium [Coumadin] 5 mg PO HS 06/20/19 ASSESSMENT AND PLAN: Patient is a 79yo male with PMHx of afib on coumadin, HTN presents to the ED after a mechanical fall- patient states the he was getting into his car when his foot got caught and he ended up on the ground. #Acute acetabular fracture: as per ortho, no surgery needed , patient is unable to ambulate will arrange short term rehab. P.T.: WBAT with walker and assistance. pain control on oxycodone prn #Afib on coumadin 5mg daily , PT/INR daily #S/P Mechanical Fall was found to have left acetbaular fracture on CT #Leukocytosis improved, UA is no growth so far. #Hyperbilirubinemia: isolated miguel 2.2-->2.8-->1.7 today , with normal LFts ; US of abdomen: mild CBD 0.7mm, cholelithiasis no chelecystitis, Hepatitis panel pending #HTN: continue home amlodipine 5mg DVT Px: Coumadin dc to rehab in am Visit type - Emergency Visit Emergency Visit: Yes ED Registration Date: 06/20/19 Care time: The patient presented to the Emergency Department on the above date and was hospitalized for further evaluation of their emergent condition. - New Patient This patient is new to me today: No - Critical Care Critical Care patient: No - Discharge Referral Referred to [facility] Med P.C.: No
--- NOTE | 2019-06-23 16:32 | PN ---
Progress Note (short form) - Note Progress Note: Pt seen, doing ok, did do P.T. today to try and ambulate on his left acetabular fracture. He said it hurt a lot. Likely he will need to go to a short term rehab facility. Otherwise orthopedically stable. Will follow.
[2019-06-23] MEDS: WARFARIN NA 5 MG TABLET (UD) PO SCH (17:06)
[2019-06-23] MEDS: oxyCODONE HCL 5 MG TABLET PO PRN (20:13)
[2019-06-24] MEDS: amLODIPine BESYLATE 5 MG TABLET (FP) PO SCH (09:41)
--- NOTE | 2019-06-24 12:37 | PN ---
Progress Note (short form) - Note Progress Note: Ortho Pt seen and examined s/p left nondisplaced acetabular fx Selected Entries 06/24/19 09:00 Temperature 98.3 F Pulse Rate 46 L Respiratory 18 Rate Blood Pressure 118/56 L decr pain, incr rom nvi a/p PT pain control ok to d/c from ortho pov d/c planning d/w Dr. Jesus
--- NOTE | 2019-06-24 15:59 | PN ---
Teaching Attending Note Name of Resident: Lavinia Rider ATTENDING PHYSICIAN STATEMENT I saw and evaluated the patient. I reviewed the resident's note and discussed the case with the resident. I agree with the resident's findings and plan as documented. SUBJECTIVE: Patient continues to have problem with ambulating. No fever or chills. OBJECTIVE: Vital Signs Temperature 98.8 F 06/24/19 13:23 Pulse Rate 57 L 06/24/19 13:23 Respiratory Rate 18 06/24/19 13:23 Blood Pressure 109/68 06/24/19 13:23 O2 Sat by Pulse Oximetry (%) 100 06/24/19 09:00 GENERAL: Awake, alert, and fully oriented, in no acute distress. EYES: PEERLA; EOMI; no scleral icterus, NECK: no JVD; no lymphadenopathy. LUNGS:coarse breath sounds B/L; HEART: Regular rate and rhythm, normal S1 and S2 without murmur, rub or gallop. ABDOMEN: soft; NT/ND +BS in all 4 quadrants MUSCULOSKELETAL: left hip pain on ambulation. No CVA tenderness. EXTREMITIES: pulses are positive ; trace edema B/L; left thigh tenderness upon palpation NEUROLOGICAL: Cranial nerves II-XII intact. Normal speech. Extremities: pulse are positive, left ankle mild pain. SKIN: Warm, dry, normal turgor, no rashes or lesions noted, normal capillary refill. CBCD WBC 6.5 K/mm3 (4.0-10.0) 06/23/19 06:30 RBC 3.72 M/mm3 (4.00-5.60) L 06/23/19 06:30 Hgb 12.5 GM/dL (11.7-16.9) 06/23/19 06:30 Hct 37.4 % (35.4-49) 06/23/19 06:30 MCV 100.4 fl (80-96) H 06/23/19 06:30 MCHC 33.5 g/dl (32.0-35.9) 06/23/19 06:30 RDW 16.5 % (11.9-15.9) H 06/23/19 06:30 Plt Count 140 K/MM3 (134-434) 06/23/19 06:30 MPV 9.3 fl (7.5-11.1) 06/23/19 06:30 CMP Sodium 141 mmol/L (136-145) 06/23/19 06:30 Potassium 3.8 mmol/L (3.5-5.1) 06/23/19 06:30 Chloride 108 mmol/L (98-107) H 06/23/19 06:30 Carbon Dioxide 27 mmol/L (21-32) 06/23/19 06:30 Anion Gap 6 MMOL/L (8-16) L 06/23/19 06:30 BUN 20.4 mg/dL (7-18) H 06/23/19 06:30 Creatinine 1.2 mg/dL (0.55-1.3) 06/23/19 06:30 Random Glucose 96 mg/dL (74-106) 06/23/19 06:30 Calcium 8.4 mg/dL (8.5-10.1) L 06/23/19 06:30 Total Bilirubin 1.7 mg/dL (0.2-1) H 06/23/19 06:30 AST 15 U/L (15-37) 06/23/19 06:30 ALT 12 U/L (13-61) L 06/23/19 06:30 Alkaline Phosphatase 90 U/L (45-117) 06/23/19 06:30 Total Protein 6.2 g/dl (6.4-8.2) L 06/23/19 06:30 Albumin 2.7 g/dl (3.4-5.0) L 06/23/19 06:30 Current Medications Generic Name Dose Route Start Last Admin Trade Name Slickq PRN Reason Stop Dose Admin Amlodipine Besylate 5 mg 06/21/19 10:00 06/24/19 09:41 Norvasc - PO 5 mg DAILY [facility] Administration Oxycodone HCl 5 mg 06/21/19 16:22 06/23/19 20:13 Roxicodone - PO 5 mg Q6H PRN Administration PAIN LEVEL 6-10 Warfarin Sodium 5 mg 06/21/19 18:00 06/23/19 17:06 Coumadin - PO 5 mg DAILY@1800 [facility] Administration Home Medications Medication Instructions Recorded Amlodipine Besylate [Norvasc -] 5 mg PO DAILY 06/20/19 Warfarin Sodium [Coumadin] 5 mg PO HS 06/20/19 ASSESSMENT AND PLAN: Patient is a 79yo male with PMHx of afib on coumadin, HTN presents to the ED after a mechanical fall- patient states the he was getting into his car when his foot got caught and he ended up on the ground. #s/p Acute acetabular fracture: as per ortho, no surgery needed , patient is unable to ambulate will arrange short term rehab. P.T.: WBAT with walker and assistance. pain control on oxycodone prn, we can give low dose 2.5mg oxycodone #Afib on coumadin 5mg daily , PT/INR daily #S/P Mechanical Fall was found to have left acetbaular fracture on CT #Leukocytosis improved, UA is no growth so far. #Hyperbilirubinemia: isolated miguel 2.2-->2.8-->1.7 today , with normal LFts ; US of abdomen: mild CBD 0.7mm, cholelithiasis no chelecystitis, Hepatitis panel pending #HTN: continue home amlodipine 5mg DVT Px: Coumadin dc to rehab when bed is available and oked the authorization.
--- NOTE | 2019-06-24 16:31 | PN ---
Physical Exam: SUBJECTIVE: Patient seen and examined at the bedside, there were no acute events overnight. The patient said he was having some pain with walking but otherwise felt well and was ready to be discharged to rehab. OBJECTIVE: Vital Signs Period Temp Pulse Resp BP Sys/Davalos Pulse Ox Last 24 Hr 98.2 F-98.9 F 41-57 16-19 109-153/56-85 95-100 GENERAL: The patient is awake, alert, and fully oriented, in no acute distress. HEAD: Normal with no signs of trauma. EYES: PERRL, extraocular movements intact, sclera anicteric, conjunctiva clear. ENT: Ears normal, nares patent, oropharynx clear without exudates, dry mucous membranes. NECK: Trachea midline, full range of motion, supple. LUNGS: Breath sounds equal, clear to auscultation bilaterally, no wheezes, no crackles, no accessory muscle use. HEART: Regular rate and rhythm, S1, S2 without murmur, rub or gallop. ABDOMEN: Soft, nontender, nondistended, normoactive bowel sounds, no guarding, no rebound. EXTREMITIES: 2+ pulses, warm, well-perfused, no edema. Tenderness to palpation at R hip. 5/5 strength bilaterally but tender at R hip. NEUROLOGICAL: Cranial nerves II through XII grossly intact. Normal speech, gait not observed. PSYCH: Normal mood, normal affect. SKIN: Warm, dry, normal turgor, no rashes or lesions noted Active Medications Generic Name Dose Route Start Last Admin Trade Name Freq PRN Reason Stop Dose Admin Amlodipine Besylate 5 mg 06/21/19 10:00 06/24/19 09:41 Norvasc - PO 5 mg DAILY [facility] Administration Warfarin Sodium 5 mg 06/21/19 18:00 06/23/19 17:06 Coumadin - PO 5 mg DAILY@1800 [facility] Administration ASSESSMENT/PLAN: 79 y/o male with PMH of afib on coumadin, HTN presents to the ED after a mechanical fall found to have an acute left acetabular fracture #S/P Mechanical Fall patient found to have left acetbaular fracture on CT -ortho consulted and patient is not a surgical candidate -PT -Plan for DC to SNF tomorrow #Leukocytosis resolved #HTN will c/w amlodipine 5mg #Afib will c/w coumadin -PT/INR in AM F/E/N not on fluids monitor electrolytes sodium controlled diet dvt ppx: coumadin Dispo: D/C to SNF tomorrow morning for PT rehab Visit type - Emergency Visit Emergency Visit: Yes ED Registration Date: 06/20/19 Care time: The patient presented to the Emergency Department on the above date and was hospitalized for further evaluation of their emergent condition. - New Patient This patient is new to me today: Yes Date on this admission: 06/24/19 - Critical Care Critical Care patient: No - Discharge Referral Referred to [facility] Med P.C.: No ATTENDING PHYSICIAN STATEMENT I saw and evaluated the patient. I reviewed the resident's note and discussed the case with the resident. I agree with the resident's findings and plan as documented. SUBJECTIVE: OBJECTIVE: ASSESSMENT AND PLAN:
[2019-06-24] MEDS: WARFARIN NA 5 MG TABLET (UD) PO SCH (17:34)
[2019-06-24 20:10] LABS: HEP B CORE AB, TOT Negative (Negative)
[2019-06-25 05:55] VITALS: PULSE 49; TEMP 98.2
[2019-06-25] MEDS ORDERED: oxyCODONE HCL 5 MG TABLET PO PRN (06:57)
[2019-06-25 09:46] LABS: ALBUMIN 3.1 g/dl (3.4-5.0); BILIRUBIN,DIRECT 0.5 mg/dL (0.0-0.2); BILIRUBIN,TOTAL 1.5 mg/dL (0.2-1)
[2019-06-25] MEDS: amLODIPine BESYLATE 5 MG TABLET (FP) PO SCH (09:52)
--- NOTE | 2019-06-25 12:10 | ECHO ---
Name: DEBORAH RODARTE Exam:Adult Echocardiogram Study Date: 06/25/2019 11:18 AM Age: 79 yrs Reason For Study: r/o lv dysfunction Height: 77 in Weight: 220 lb BSA: 2.3 m2 MMode/2D Measurements & Calculations IVSd: 1.1 cm Ao root diam: 3.4 cm LVIDd: 5.0 cm LA dimension: 4.2 cm LVIDs: 3.5 cm LVPWd: 1.1 cm LVPWs: 1.8 cm EDV(Teich): 117.9 ml ESV(Teich): 51.3 ml LVOT diam: 2.4 cm Doppler Measurements & Calculations Ao V2 max: 117.1 cm/sec AI max rickey: 438.4 cm/sec Ao max P.7 mmHg AI max P.9 mmHg Ao V2 mean: 71.4 cm/sec Ao mean P.5 mmHg AI dec slope: 161.2 cm/sec2 Ao V2 VTI: 22.5 cm STEPHANIE(I,D): 4.1 cm2 AI P1/2t: 796.8 msec STEPHANIE(V,D): 4.0 cm2 LV V1 max P.1 mmHg MR max rickey: 560.1 cm/sec LV V1 mean P.0 mmHg MR max P.5 mmHg LV V1 max: 101.2 cm/sec LV V1 mean: 65.5 cm/sec LV V1 VTI: 20.3 cm SV(LVOT): 93.4 ml TR max rickey: 202.2 cm/sec TR max P.4 mmHg PA V2 max: 112.7 cm/sec Med Peak E' Rickey: 6.7 cm/sec PA max P.1 mmHg Lat Peak E' Rickey: 11.3 cm/sec Procedure A complete two-dimensional transthoracic echocardiogram was performed (2D, M-mode, Doppler and color flow Doppler). Left Ventricle The left ventricular size, thickness and function are normal. The left ventricular ejection fraction is normal. The left ventricular wall motion is normal. Right Ventricle The right ventricle is normal in size and function. Atria The left atrium is moderately dilated. The right atrium is mildly dilated. The atrial septum is aneur ysmal. Mitral Valve There is mild mitral valve thickening. There is no mitral valve stenosis. There is moderate to severe mitral regurgitation. The mitral regurgitant jet is eccentrically directed. Tricuspid Valve The tricuspid valve is normal in structure and function. There is no tricuspid stenosis. There is tra ce tricuspid regurgitation. Right ventricular systolic pressure is normal. Aortic Valve The aortic valve is normal in structure and function. No hemodynamically significant valvular aortic stenosis. Mild to moderate aortic regurgitation. Pulmonic Valve The pulmonic valve is not well visualized. Great Vessels The aortic root is normal size. Pericardium/Pleura There is no pericardial effusion. Interpretation Summary The left ventricular ejection fraction is normal. The left ventricular size, thickness and function are normal Mild to moderate aortic regurgitation. The right atrium is mildly dilated. The left ventricular wall motion is normal. There is trace tricuspid regurgitation. Right ventricular systolic pressure is normal. The left atrium is moderately dilated. The atrial septum is aneurysmal. There is moderate to severe mitral regurgitation. The mitral regurgitant jet is eccentrically directed. MD Hollis Landrum 06/25/2019 12:09 PM
[2019-06-25 13:34] VITALS: BP 118/75
--- NOTE | 2019-06-25 14:01 | PN ---
Teaching Attending Note Name of Resident: Mari Gifford ATTENDING PHYSICIAN STATEMENT I saw and evaluated the patient. I reviewed the resident's note and discussed the case with the resident. I agree with the resident's findings and plan as documented. SUBJECTIVE: pain in L hip with walking . no fever or chills OBJECTIVE: NAD CV : RRR Lungs: CTAB Abd: no TTP in abd ext , no edema . declined hip exam ASSESSMENT AND PLAN: 88 y/o man with h/o A fib on coumadin, and HTN who presented with a sky nd was found to have L acetabular Fx 1- L acetabular Fx: WBAT PT tele reviewed. no events 2- elevated bili , and Alk phos. trended down. US with no cholecystitis but CBD is 7 mm. no abd tenderness or pain and LFTS trended down. ? passed a stone. - need f/u with GI and possibly MRCP if CBD remains dilated on repeat imaging - need hepatitis B vaccine as out pt 3- A hib : cont coumadin . next INR in 3 days at rehab 4- HTN: cont norvasc DC to rehab
--- NOTE | 2019-06-25 18:01 | DS ---
Physical Exam: SUBJECTIVE: Patient seen and examined at the bedside, stated he was feeling well and only had minimal pain on walking. Patient is scheduled for discharge to [facility] this afternoon to have physical therapy before being discharged to home. OBJECTIVE: Vital Signs Period Temp Pulse Resp BP Sys/Davalos Pulse Ox Last 24 Hr 98.0 F-98.5 F 47-73 20-20 118-153/75-80 100 PHYSICAL EXAM GENERAL: The patient is awake, alert, and fully oriented, in no acute distress. HEAD: Normal with no signs of trauma. EYES: PERRL, extraocular movements intact, sclera anicteric, conjunctiva clear. ENT: Ears normal, nares patent, oropharynx clear without exudates, dry mucous membranes. NECK: Trachea midline, full range of motion, supple. LUNGS: Breath sounds equal, clear to auscultation bilaterally, no wheezes, no crackles, no accessory muscle use. HEART: Regular rate and rhythm, S1, S2 without murmur, rub or gallop. ABDOMEN: Soft, nontender, nondistended, normoactive bowel sounds, no guarding, no rebound. EXTREMITIES: 2+ pulses, warm, well-perfused, no edema. Tenderness to palpation at R hip. 5/5 strength bilaterally but tender at R hip. NEUROLOGICAL: Cranial nerves II through XII grossly intact. Normal speech, gait not observed. PSYCH: Normal mood, normal affect. SKIN: Warm, dry, normal turgor, no rashes or lesions noted LABS Laboratory Results - last 24 hr 06/21/19 06/25/19 08:25 09:05 Total Bilirubin 1.5 H Direct Bilirubin 0.5 H AST 14 L ALT 13 Alkaline Phosphatase 105 Total Protein 7.0 Albumin 3.1 L Hep A IgM Ab Confirm Negative Hepatitis A Ab Total Negative Hep Bs Antigen Negative Hep Bs Antibody Non reactive Hep B Core Total Ab Negative Hep B Core IgM Ab Negative Hepatitis Be Antibody Negative Hepatitis Be Antigen Negative HOSPITAL COURSE: Date of Admission:06/20/19 79 y/o male with PMH of afib on coumadin, HTN presented to the ED after a mechanical fall and subsequently found to have an acute left acetabular fracture on CT imaging. His work up included evaluation by orthopedic surgery but the patient was not a surgical candidate at this time. Patient was seen by physical therapy and was able to walk 15ft with a shuffling gate. It was recommended the patient have inpatient physical therapy prior to being discharged home. The patient was transferred to [facility] on 06/25/19 for rehabilitation. Date of Discharge: 06/25/19 Minutes to complete discharge: 40 Discharge Summary Reason For Visit: FRACTURE OF THE LEFT ACETABULUM Condition: Improved - Instructions Diet, Activity, Other Instructions: You were hospitalized because you fell and had a mild Hip fracture that did not need an operation as per orthopedic surgery. While in this hospital you were seen by physical therapy and treated for pain. You had some pain with walking and so we are discharging you a [facility] facility for physical therapy rehabilitation prior to going home. Please continue taking any home medications you had prior to your hospital stay as prescribed. Please follow up with you primary care provider Dr. Douglass within 1 week of discharge from the [facility] facility. Please follow up with the orthopedic surgeon Dr. Baig within 1 week of discharge from the [facility] facility. Please follow up with combination welder apprentice Dr. Shelton within 1 week of discharge from the [facility] facility to follow up on you liver function tests and possibly for additional imaging. ( you might need MRIof your liver) If you experience another fall, difficulty walking, change in sensation of your leg or foot, chest pains, or shortness of breath please return to the Emergency Department immediately. weight baring as tolerated on Left lower extremities. you need hepatitis B vaccine follow on your INR as per your routine. it needs to be checked at the rehab . next one in 3 days Referrals: Blane Douglass [Other] - 1 Week Gaby Shelton MD [Staff Physician] - 1 Week Aaron Baig MD [Staff Physician] - 1 Week Disposition: RESIDENTIAL FACILITY - Home Medications Comprehensive Discharge Medication List: Ambulatory Orders Amlodipine Besylate [Norvasc -] 5 mg PO DAILY 06/20/19 Warfarin Sodium [Coumadin] 5 mg PO HS 06/20/19 Ibuprofen 400 mg PO Q8H #20 tablet 06/25/19 This patient is new to me today: No Emergency Visit: Yes ED Registration Date: 06/20/19 Care time: The patient presented to the Emergency Department on the above date and was hospitalized for further evaluation of their emergent condition. Critical Care patient: No - Discharge Referral Referred to [facility] Med P.C.: No ATTENDING PHYSICIAN STATEMENT I saw and evaluated the patient. I reviewed the resident's note and discussed the case with the resident. I agree with the resident's findings and plan as documented. SUBJECTIVE: OBJECTIVE: ASSESSMENT AND PLAN:
== END 2019-06-25 17:19 | DRG 536 ==
LOC: JER 16:11 → JERFT 16:11 → JERBED 21:25 → J6S 06-21 00:56
PROVIDERS: ADMIT Internal Medicine; ATTEND Internal Medicine
DX: S32.402A Unspecified fracture of left acetabulum, initial encounter for closed fracture (principal); I10 Essential (primary) hypertension; I48.91 Unspecified atrial fibrillation; D72.829 Elevated white blood cell count, unspecified; E80.6 Other disorders of bilirubin metabolism; W19.XXXA Unspecified fall, initial encounter; Y93.9 Activity, unspecified; Y92.89 Other specified places as the place of occurrence of the external cause
CPT/HCPCS: 36415; 71045-TC-FY; 73523-TC-FY; 73552-TC-LT-FY; 73700-TC-RT; 76705-TC; 80053; 80076; 80307; 81003; 83735; 84100; 85025; 85027; 85610; 85730; 86704; 86706; 86707; 86708; 86709; 86850; 86900; 86901; 87086; 87340; 93005; 93010; 93306-TC; 97116-GP; 97162-GP; 99284-25